=== PATIENT | male | born 1995 | race Native Hawaiian/Other Pacific Islander ===

== ENCOUNTER 2017-08-30 07:58 | Emergency (ER) | payer OTHER ==
[2017-08-30] MEDS ORDERED: PROPARACAINE 0.5% OPHTH DROPS 15 ML EACHEYE STA (08:30)
--- NOTE | 2017-08-30 08:34 | ED Physician Documentation ---
History of Present Illness - Stated complaint Stated Complaint: BI LAT EYE REDNESS - Chief complaint Chief Complaint: Heent - Additonal information Additional information: hx from pt 22 AD [place] male to ER with raimundo eye erythema and burning pain yaneli with light for 3 days no UV exposure (welding etc) no trauma wears resuable contacts, started this pair 2 weeks ago, did not accidentally sleep with them over night no discharge no FB no sneezing congestion or other allergy sx Review of Systems Constitutional: denies: Fever Eyes: reports: Photophobia, Irritation. denies: Decreased vision, Discharge PD PAST MEDICAL HISTORY - Past Medical History Past Medical History: No - Past Surgical History Past Surgical History: No - Present Medications Home Medications: Ambulatory Orders Medication Instructions Recorded Confirmed Olopatadine HCl [Patanol] 1 drops OP BID #1 bottle 08/30/17 - Allergies Allergies/Adverse Reactions: Allergies Allergy/AdvReac Type Severity Reaction Status Date / Time No Known Drug Allergies Allergy Verified 08/30/17 08:07 - Social History Does the pt smoke?: No Smoking Status: Never smoker - Immunizations Immunizations are current?: Yes PD ED PE NORMAL - Vitals Vital signs reviewed: Yes (visual acuity noted - with contacts in) - HEENT HEENT: PERRL, EOMI, Other (raimundo eyes injected diffusely, no limbal flush, no discharge, no perorbital erythema,a mild photophobia, after proparacaine all discomfort resolved, no abrasion or ulcer or deindrites with flourescein, no FB , pressure 14 on R 13 on L) Results - Vitals Vitals: Vital Signs - 24 hr 08/30/17 08:04 Temperature 36.7 C Heart Rate 79 Respiratory 19 Rate Blood Pressure 130/67 O2 Saturation 99 Oxygen O2 Source Room air PD MEDICAL DECISION MAKING - ED course ED course: most c/w allergic or viral conjunctivitis not suggestive of contact ulcer, bacterial infection, iritis, galucoma etc will tx symtomatically and rec fup at [facility] Friday Departure - Departure Disposition: 01 Home, Self Care Clinical Impression: Conjunctivitis Qualifiers: Conjunctivitis type: unspecified Laterality: bilateral Qualified Code(s): H10.9 - Unspecified conjunctivitis Condition: Good Instructions: ED Conjunctivitis Nonspecific Follow-Up: SAAD Ribeiro [Provider Group] Prescriptions: Olopatadine HCl [Patanol] 1 drops OP BID #1 bottle Comments: Your eye exam does not show an ulcer from your contacts, a bacterial infection, glaucoma or iritis. I think this is either a viral or allergic inflammation Please do not wear your contacts until better Use the eye drops as prescribed [facility] for a recheck Return to the ER if worse over the weekend
[2017-08-30 09:09] VITALS: BP 126/58
== END 2017-08-30 09:07 | disposition home or self-care (01) ==
LOC: ED 07:58
DX: H10.9 Unspecified conjunctivitis (principal)
CPT/HCPCS: 99283; J3490

== ENCOUNTER 2018-01-13 09:57 | Emergency (ER) | payer OTHER ==
--- NOTE | 2018-01-13 12:06 | ED Physician Documentation ---
PD HPI NVD - Stated complaint Stated Complaint: VOMITING - Chief complaint Chief Complaint: Abd Pain - History obtained from History obtained from: Patient - History of Present Illness Timing - onset: Last night Timing - duration: Hours (12) Timing - details: Abrupt onset (soon after eating leftovers fried chicken. Had felt okay earlier in the day.), Still present (but feeling less severe the past hour or so.) Associated symptoms: Abdominal pain (upper abd intermittent.), Other (nausea and vomited several times; no diarrhea.). No: Fever Contributing factors: Bad food (ate some leftover chicken that he feels was it, started feeling sick an hour or less later.). No: Sick contact, Recent antibiotics Improved by: Vomiting. No: Eating Worsened by: Eating Similar symptoms before: Has not had sx before Recently seen: Not recently seen Review of Systems Constitutional: denies: Fever, Chills Nose: denies: Rhinorrhea / runny nose, Congestion Throat: denies: Sore throat Cardiac: denies: Chest pain / pressure Respiratory: denies: Dyspnea, Cough GI: reports: Abdominal Pain (intermittent), Nausea, Vomiting. denies: Diarrhea : denies: Dysuria, Frequency Skin: denies: Rash Musculoskeletal: denies: Neck pain, Back pain Neurologic: reports: Generalized weakness. denies: Focal weakness, Numbness, Near syncope PD PAST MEDICAL HISTORY - Past Medical History Past Medical History: No Cardiovascular: None Respiratory: None Neuro: None Endocrine/Autoimmune: None GI: None - Past Surgical History Past Surgical History: No - Present Medications Home Medications: Ambulatory Orders Medication Instructions Recorded Confirmed Ondansetron Odt [Zofran] 4 mg TL Q6H PRN #15 tablet 01/13/18 - Allergies Allergies/Adverse Reactions: Allergies Allergy/AdvReac Type Severity Reaction Status Date / Time No Known Drug Allergies Allergy Verified 08/30/17 08:07 - Social History Does the pt smoke?: No Smoking Status: Never smoker Does the pt drink ETOH?: Yes Does the pt have substance abuse?: No - Immunizations Immunizations are current?: Yes PD ED PE NORMAL - Vitals Vital signs reviewed: Yes - General General: Alert and oriented X 3, No acute distress, Well developed/nourished - HEENT HEENT: Ears normal, Moist mucous membranes, Pharynx benign - Neck Neck: Supple, no meningeal sign, No adenopathy - Cardiac Cardiac: RRR, No murmur - Respiratory Respiratory: Clear bilaterally - Abdomen Abdomen: Normal bowel sounds, Soft, Non tender, Non distended - Neuro Neuro: Alert and oriented X 3, No motor deficit, Normal speech Results - Vitals Vitals: Oxygen O2 Source Room air PD MEDICAL DECISION MAKING - ED course Complexity details: considered differential (seems likely food related or so, and he is improving some already but needs eval/note to have day off work. ), d/ w patient - Sepsis Event Vital Signs: Oxygen O2 Source Room air Departure - Departure Disposition: Home, Self Care Clinical Impression: Nausea and vomiting Qualifiers: Vomiting type: bilious vomiting Qualified Code(s): R11.14 - Bilious vomiting Abdominal pain Qualifiers: Abdominal location: upper abdomen, unspecified Qualified Code(s): R10.10 - Upper abdominal pain, unspecified Condition: Stable Record reviewed to determine appropriate education?: Yes Instructions: ED Nausea Vomiting Follow-Up: SAAD Ribeiro [Provider Group] Prescriptions: Ondansetron Odt [Zofran] 4 mg TL Q6H PRN #15 tablet PRN Reason: Nausea / Vomiting Comments: Small frequent fluids. [place] food today and progress diet as able. Ondansetron if needed for nausea. Pepto-Bismol or Mylanta or similar if needed for upset stomach or pains. Tylenol for simple pains. Recheck if not improved over the next day. This likely sounds food related from the leftovers or possibly a viral illness. Either of these typically last about 12-24 hours and improved. Rest off work today. Forms: Activity restrictions Discharge Date/Time: 01/13/18 12:43
[2018-01-13] MEDS ORDERED: ACETAMINOPHEN 325 MG TABLET PO STA (12:25)
[2018-01-13] MEDS ORDERED: ONDANSETRON ODT 4 MG TABLET TL STA (12:25)
[2018-01-13 12:44] VITALS: BP 132/97
== END 2018-01-13 12:43 | disposition home or self-care (01) ==
LOC: ED 09:57
DX: R11.2 Nausea with vomiting, unspecified (principal); R10.10 Upper abdominal pain, unspecified
CPT/HCPCS: 99283; A9270; Q0162